=== PATIENT | female | born 1970 | race Caucasian/White ===

== ENCOUNTER → 2018-05-22 | Outpatient (CLI) | payer OTHER ==
[~2018-05-22] MED LIST: NOHOMEMEDICATIONS; PERCOCET 5-3251 EACH PO; ZOFRAN4 MG PO
== END ==
LOC: M.CT 14:14
DX: Z13.6 Encounter for screening for cardiovascular disorders (principal)

== ENCOUNTER → 2020-06-14 | Outpatient (CLI) | payer OTHER | LOC: M.RAD 15:13 | PROVIDERS: ATTEND General Practice | DX: Z12.31 Encounter for screening mammogram for malignant neoplasm of breast (principal) ==

== ENCOUNTER → 2020-06-28 | Outpatient (CLI) | payer OTHER | LOC: M.ULTRA 15:57 | PROVIDERS: ATTEND General Practice | DX: N60.02 Solitary cyst of left breast (principal); N63.20 Unspecified lump in the left breast, unspecified quadrant; N63.10 Unspecified lump in the right breast, unspecified quadrant; N60.01 Solitary cyst of right breast ==

== ENCOUNTER 2021-01-02 18:49 | Emergency (ER) | payer OTHER ==
[~2021-01-02] VITALS: Ht 162.6 cm; Wt 77.1 kg
[2021-01-02] MEDS ORDERED: RANOLAZINE ER1000 MG PO ×2 (19:10→19:11)
[2021-01-02] MEDS ORDERED: EZALLOR SPRINKL20 MG PO (19:11)
[2021-01-02] MEDS ORDERED: PROBIOTIC1 EAC7 PO (19:12)
[2021-01-02] MEDS ORDERED: NORCO5 PO (20:37)
[2021-01-02] MEDS ORDERED: ZOFRAN ODT4 MG PO (20:37)
[2021-01-02 20:55] VITALS: BP 132/74
== END 2021-01-02 20:55 | disposition home or self-care (01) ==
LOC: M.ERS 18:49
DX: S93.491A Sprain of other ligament of right ankle, initial encounter (principal); Z98.51 Tubal ligation status; W01.0XXA Fall on same level from slipping, tripping and stumbling without subsequent striking against object, initial encounter; Y93.89 Activity, other specified; Y92.89 Other specified places as the place of occurrence of the external cause; Y99.8 Other external cause status

== ENCOUNTER → 2021-08-31 | Outpatient (CLI) | payer OTHER ==
[~2021-08-31] MED LIST changes: +EZALLOR SPRINKL20 MG PO; +NORCO5 PO; +PROBIOTIC1 EAC7 PO; +RANOLAZINE ER1000 MG PO; +ZOFRAN ODT4 MG PO
== END ==
LOC: M.RAD 13:20 → M.ULTRA 14:00
PROVIDERS: ATTEND General Practice
DX: Z12.31 Encounter for screening mammogram for malignant neoplasm of breast (principal); N60.01 Solitary cyst of right breast

== ENCOUNTER → 2021-09-10 | Outpatient (CLI) | payer OTHER | LOC: M.RAD 07:58 | PROVIDERS: ATTEND General Practice | DX: Z13.820 Encounter for screening for osteoporosis (principal); M85.88 Other specified disorders of bone density and structure, other site ==